=== PATIENT | male | born 1965 | race Two or more races ===

== ENCOUNTER 2020-12-31 10:29 | Outpatient (CLI) | payer OTHER | END 2020-12-31 10:33 | disposition home or self-care (01) | LOC: LAB 10:29 | PROVIDERS: ATTEND Urology | DX: N20.1 Calculus of ureter (principal); R97.21 Rising PSA following treatment for malignant neoplasm of prostate ==

== ENCOUNTER 2021-01-01 09:27 | Outpatient (CLI) | payer OTHER | END 2021-01-01 09:39 | disposition home or self-care (01) | LOC: TOM 09:27 | PROVIDERS: ATTEND Urology | DX: N40.1 Benign prostatic hyperplasia with lower urinary tract symptoms (principal); N28.1 Cyst of kidney, acquired ==